=== PATIENT | male | born 1985 | race Caucasian/White ===

== ENCOUNTER 2025-01-19 15:14 | Emergency (ER) | payer BC ==
[2025-01-19] MEDS: Diphtheria,Pertussis(Acell),Tetanus Vaccine 0.5 ML Syringe IM ONE (16:24)
[2025-01-19] MEDS: Bacitracin Oint 1 GM U/D Packet TOP ONE (16:25)
== END 2025-01-19 16:40 | disposition home or self-care (01) ==
LOC: JP.ED 15:14
DX: S91.331A Puncture wound without foreign body, right foot, initial encounter (principal); Z88.0 Allergy status to penicillin; Z79.899 Other long term (current) drug therapy; Z23 Encounter for immunization; W45.0XXA Nail entering through skin, initial encounter; Y93.89 Activity, other specified
CPT/HCPCS: 90471; 90715; 99283-25